=== PATIENT | male | born 1930 | race Caucasian/White ===

== ENCOUNTER 2019-01-11 21:27 | Observation (INO) ==
[2019-01-11] MEDS ORDERED: HYDROmorphone 2 MG/ML VIAL IV PRN (21:44)
[2019-01-11 22:53] LABS: Basophils # (Auto) 0.1 K/mcL (0.0-0.3); Eosinophils # (Auto) 0.1 K/mcL (0.0-0.7); Eosinophils % (Auto) 1.1 % (0.0-7.0); Granulocytes % (Auto) 79.5 % (38.0-78.0); Hemoglobin 13.5 g/dL (13.5-16.5); Lymphocytes # (Auto) 1.1 K/mcL (1.5-4.8); Lymphocytes % (Auto) 11.2 % (15.5-49.0); Mean Cell Volume 94.2 fL (80.0-100.0); Mean Corpuscular HGB Conc 33.7 g/dL (31.0-36.0); Monocytes # (Auto) 0.7 K/mcL (0.1-0.9); Monocytes % (Auto) 7.2 % (1.0-12.0); Platelet Count 139 K/mcL (140-440); RBC 4.25 M/mcL (4.50-5.90); Red Cell Distribution Width 15.1 % (11.5-14.5); WBC 9.7 K/mcL (4.5-11.0)
[2019-01-11 23:05] LABS: INR 1.8 (0.9-1.1); Prothrombin Time 20.7 sec (11.9-14.5)
[2019-01-11 23:14] LABS: ALT/SGPT 16 U/l (0-40); AST/SGOT 18 U/l (0-37); Albumin 3.4 gm/dL (3.2-5.2); Alkaline Phosphatase 66 U/L (39-117); Bilirubin,Total 2.8 mg/dL (0.0-1.0); Blood Urea Nitrogen 24 mg/dl (8-23); Calcium 9.1 mg/dl (8.6-10.4); Carbon Dioxide 24 mmol/L (22-30); Chloride 97 mmol/L (96-108); Globulin 3.4 gm/dL (2.2-3.7); Glomerular Filtration Rate 38; Glucose 136 mg/dL (70-105); Potassium 4.1 mmol/L (3.3-5.1); Sodium 135 mmol/L (133-145)
[2019-01-11] MEDS ORDERED: 0.9 % SODIUM CHLORIDE 1,000 ML IV ONE (23:26)
--- NOTE | 2019-01-12 00:52 | Emergency Department Note ---
Lower Extremity Injury HPI - General Chief Complaint: Extremity Injury, Lower Stated Complaint: right knee swelling Time Seen by Provider: 01/11/19 21:30 Source: patient Mode of arrival: ambulatory Limitations: no limitations - History of Present Illness HPI Narrative: 88-year-old male who fell 3 days ago at [place]. He lives on the assisted side. Apparently he fell onto both knees. 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 He is on Coumadin and his right knee swelled up and turned red. He did started to develop a fever up to 100.6 and so was brought in. He was seen by Dr. Timmons, who put him in a knee immobilizer and arrange for him to go to [facility] as he no longer could get care at [place]. I reviewed that note His daughter is somewhat irate because he got some furosemide there and he should not have. Anyways it arranged for him to have a consult with Dr. Albino Clark at [facility] in 2 days. He is chronically anticoagulated for atrial fibrillation - Related Data Home Medications Medication Instructions Recorded Confirmed cholecalciferol (vitamin D3) 5,000 5,000 unit PO QAMCC tab 01/22/15 01/12/19 unit tablet multivitamin capsule 1 tab-cap PO QDAY cap 01/22/15 01/12/19 omeprazole 20 mg capsule,delayed 20 mg PO QAM 30 Days #30 06/17/17 01/12/19 release ascorbic acid (vitamin C) 500 mg 500 mg PO QDAY 03/01/18 01/12/19 tablet ADA diet 0 dose .ROUTE .MEDSUPPLY 01/12/19 01/12/19 Brimonidine/Dorzolamide/Pf 10 ml OP QHS 01/12/19 01/12/19 [Brimonidine 0.15%-Dorzolam 2%] Compr.stocking,Knee,Long,Small 0 order .MEDSUPPLY 01/12/19 01/12/19 [T.e.d. Anti-Embolism Stocking] Latanoprost/Pf [Latanoprost 0.005% 7.5 ml OP QHS 01/12/19 01/12/19 Eye Drop] Levothyroxine Sodium [Synthroid] 125 mcg PO QDAY 01/12/19 01/12/19 Tamsulosin HCl [Flomax] 0.4 mg PO QAC 01/12/19 01/12/19 Warfarin [Coumadin] 1.25 mg PO .SUN/TUE/THUR/SAT 01/12/19 01/12/19 Warfarin [Coumadin] 2.5 mg PO .MON/THU/Thu01/12/19 01/12/19 Previous Rx's Medication Instructions Recorded simvastatin 20 mg tablet 20 mg PO QPM 90 Days #90 tab 01/18/18 atenolol 25 mg tablet 12.5 mg PO BID #45 tab 05/21/18 digoxin 125 mcg tablet 125 mcg PO QDAY 90 Days #90 tab 07/12/18 lisinopril 5 mg tablet 5 mg PO QDAY #30 tab 07/30/18 Allergies Allergy/AdvReac Type Severity Reaction Status Date / Time sotalol AdvReac Mild Muscle Pain Verified 01/12/19 06:07 Review of Systems All systems ED: reviewed and negative except as stated. Past Medical History - Past Medical History Attestation: Yes: The following information was validated with the patient. 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) Atrial fibrillation (Chronic) Prediabetes (Acute) Elevated liver function tests (Acute) History of sleep apnea (Chronic) Brain mass (Acute) Peripheral vascular disease (Chronic) Syncope (Resolved) Elevated brain natriuretic peptide (BNP) level (Chronic) Edema (Chronic) Insomnia (Chronic) Crystalluria (Chronic) Macular degeneration (Chronic) Essential hypertension (Chronic) Arteritis (Chronic) Hypothyroidism (Chronic) Degenerative arthritis (Chronic) Dyslipidemia (Chronic) Thrombocytopenia (Chronic) Calculus of kidney (Chronic) Duodenitis (Chronic) Basal cell carcinoma of multiple sites (Chronic) Sleep apnea (Chronic) History of bladder cancer (Chronic) Malignant neoplasm of bladder (Resolved 02/24/14) Bladder tumor (Resolved) Gross hematuria (Resolved) Thyroid nodule (Resolved) History of tobacco use (Resolved) Hematuria (Chronic) Diarrhea (Resolved) Postop check (Resolved) Strain of lumbar region (Resolved) Past Surgical History (Last Reviewed 12/15/18 @ 07:57 by Brina Salcedo RN) History of bladder surgery (Resolved) S/P subtotal thyroidectomy (Resolved) Status post surgical removal of malignant neoplasm of skin (Resolved) H/O mastoidectomy (Resolved) S/P arthroscopy of left knee (Resolved) H/O esophagogastroduodenoscopy (Chronic 07/29/17) S/P cystoscopy (Resolved) S/P colonoscopy (Resolved 08/26/17) S/P cholecystectomy (Resolved) S/P biopsy (Resolved) S/P appendectomy (Resolved) Medical history: Reports: atrial fibrillation, CHF, chronic anticoagulation, other (bladder cancer) Surgical history ED: Reports: other (history of bladder cancer, status post treatment.) - Social History smoking status: Former smoker Alcohol use: Reports: Daily Drug use: Reports: none Physical Exam Gross hearing loss is noted. Irregular pulse. Normocephalic atraumatic. Conjunctive are clear sclerae white and icteric. Oropharynx pink and moist. Heart is irregularly irregular rhythm. Lungs are clear to auscultation bilaterally. Exam of the knees shows left knee normal size without significant tenderness. However the right knee diffuse redness especially prepatellar in the superior portions even when lying down. It is tender at posteriorly as well and I cannot detect Pollard's cyst. It is tender with any movement so I am unable to sort out specific ligament issues. Swelling distorts normal anatomy. He is able to move with some. Ankle and foot appear normal Limitations: no limitations Course Vital Signs Temperature 99.2 F H 01/11/19 21:29 Pulse Rate 94 H 01/11/19 21:29 Respiratory Rate 18 01/11/19 21:29 Blood Pressure 141/60 01/11/19 21:29 Pulse Oximetry (%) 95 01/11/19 21:29 Temperature 98.3 F 01/12/19 02:06 Pulse Rate 70 01/12/19 02:06 Respiratory Rate 12 01/12/19 02:06 Blood Pressure 129/68 01/12/19 02:06 Pulse Oximetry (%) 95 01/12/19 02:06 Procedures - Joint Aspiration/Injection Joint Aspiration/Injection 1 Consent Obtained: verbal consent Time Out Performed: No Side of body: right Joint Aspirated: knee Ultrasound Guidance: No Skin Prep: Povidone-Iodine1% Local Anesthetic: lidocaine 1% Amount of anesthesia used (mL): 4 Needle Size Used: Other (25g) Fluid Obtained: bloody Total Fluid Obtained (mls): 2 Complications: none Additional Comments: I used a long spinal needle to try and get into the knee joint space. Because the distortions anatomy it took me 3 attempts. However the third attempt I did get into the joint space but no fluid was aspirated. It was clear then that the fluid is actually in the prepatellar space between the patella and the joint capsule. I then try to superior approach and took out 2 cc of bloody fluid from the prepatellar space-suspect prepatellar hemorrhagic bursitis Extremity Injury, Lower - Lab Data Lab results reviewed: Yes I reviewed the patient's lab results. Result diagrams: 01/12/19 04:21 01/12/19 04:21 Lab Results 01/11/19 01/11/19 01/11/19 Range/Units 22:00 22:00 22:00 WBC 9.7 (4.5-11.0) K/mcL RBC 4.25 L (4.50-5.90) M/mcL Hgb 13.5 (13.5-16.5) g/dL Hct 40.0 L (41.0-55.0) % MCV 94.2 (80.0-100.0) fL MCH 31.7 (26.0-34.0) pg MCHC 33.7 (31.0-36.0) g/dL RDW 15.1 H (11.5-14.5) % Plt Count 139 L (140-440) K/mcL MPV 10.0 (7.4-10.4) fL Gran % 79.5 H (38.0-78.0) % Lymph % (Auto) 11.2 L (15.5-49.0) % Webster % (Auto) 7.2 (1.0-12.0) % Eos % (Auto) 1.1 (0.0-7.0) % Baso % (Auto) 1.0 (0.0-2.0) % Gran # 7.7 (1.8-8.0) K/mcL Lymph # (Auto) 1.1 L (1.5-4.8) K/mcL Webster # (Auto) 0.7 (0.1-0.9) K/mcL Eos # (Auto) 0.1 (0.0-0.7) K/mcL Baso # (Auto) 0.1 (0.0-0.3) K/mcL PT 20.7 H (11.9-14.5) sec INR 1.8 H (0.9-1.1) VBG Lactic Acid (0.5-2.0) mmol/L Sodium 135 (133-145) mmol/L Potassium 4.1 (3.3-5.1) mmol/L Chloride 97 (96-108) mmol/L Carbon Dioxide 24 (22-30) mmol/L Anion Gap 14.0 (8-16) BUN 24 H (8-23) mg/dl Creatinine 1.6 H (0.7-1.2) mg/dl GFR Calculation 38 Glucose 136 H (70-105) mg/dL Uric Acid (2.5-8.0) mg/dL Calcium 9.1 (8.6-10.4) mg/dl Total Bilirubin 2.8 H (0.0-1.0) mg/dL AST 18 (0-37) U/l ALT 16 (0-40) U/l Alkaline Phosphatase 66 (39-117) U/L Total Protein 6.8 (5.9-8.4) gm/dL Albumin 3.4 (3.2-5.2) gm/dL Globulin 3.4 (2.2-3.7) gm/dL Albumin/Globulin Ratio 1.0 (1.0-2.3) 01/11/19 01/11/19 Range/Units 22:00 22:00 WBC (4.5-11.0) K/mcL RBC (4.50-5.90) M/mcL Hgb (13.5-16.5) g/dL Hct (41.0-55.0) % MCV (80.0-100.0) fL MCH (26.0-34.0) pg MCHC (31.0-36.0) g/dL RDW (11.5-14.5) % Plt Count (140-440) K/mcL MPV (7.4-10.4) fL Gran % (38.0-78.0) % Lymph % (Auto) (15.5-49.0) % Webster % (Auto) (1.0-12.0) % Eos % (Auto) (0.0-7.0) % Baso % (Auto) (0.0-2.0) % Gran # (1.8-8.0) K/mcL Lymph # (Auto) (1.5-4.8) K/mcL Webster # (Auto) (0.1-0.9) K/mcL Eos # (Auto) (0.0-0.7) K/mcL Baso # (Auto) (0.0-0.3) K/mcL PT (11.9-14.5) sec INR (0.9-1.1) VBG Lactic Acid 0.9 (0.5-2.0) mmol/L Sodium (133-145) mmol/L Potassium (3.3-5.1) mmol/L Chloride (96-108) mmol/L Carbon Dioxide (22-30) mmol/L Anion Gap (8-16) BUN (8-23) mg/dl Creatinine (0.7-1.2) mg/dl GFR Calculation Glucose (70-105) mg/dL Uric Acid 6.9 (2.5-8.0) mg/dL Calcium (8.6-10.4) mg/dl Total Bilirubin (0.0-1.0) mg/dL AST (0-37) U/l ALT (0-40) U/l Alkaline Phosphatase (39-117) U/L Total Protein (5.9-8.4) gm/dL Albumin (3.2-5.2) gm/dL Globulin (2.2-3.7) gm/dL Albumin/Globulin Ratio (1.0-2.3) - Radiology Data Radiology results reviewed: Yes I reviewed the patient's radiology results. CT scan of the right knee on [employer] read shows consistent with prepatellar bursitis and possible ruptured popliteal cyst. Multiple Compartment degenerative changes. Dr. Savage over read questions possible ligament tear Disposition Pt seen by [facility] [employer] [facility]/PA only: No Clinical Impression: manager terminal current use of anticoagulant therapy, Acute kidney injury Hemorrhagic prepatellar bursitis Qualifiers: Laterality: right Qualified Code(s): M70.41 - Prepatellar bursitis, right knee Fever Qualifiers: Fever type: unspecified Qualified Code(s): R50.9 - Fever, unspecified Summary: Initially treated his pain and ordered work-up. In summary patient is a 88-year-old with a red hot swollen right knee status post fall 2 days ago. Now with fever After aspiration of the knee this was sent for wound culture and Gram stain. Laboratory shows acute kidney injury with a creatinine bump to 1.6 but he did have furosemide today and is not taking much fluid. Started IV fluid. Discussed the case with Dr. Nico Washington, orthopedist certified pediatric nurse practitioner. He advised me to start Ancef. I then discussed the case with Dr. New, our hospitalist, who agreed to accept the patient for further care and evaluation in the hospital Disposition: Xfer As Inpt ([facility]) Condition: Fair
[2019-01-12] MEDS ORDERED: ceFAZolin 1 GM VIAL IM ONE (01:06)
[2019-01-12] MEDS ORDERED: HYDROmorphone 2 MG/ML VIAL IV PRN (01:57)
[2019-01-12] MEDS ORDERED: ACETAMINOPHEN 325 MG TABLET PO PRN (01:57)
[2019-01-12] MEDS ORDERED: VANCOMYCIN 1,500 MG in 0.9 % SODIUM CHLORIDE 500 ML IV ONE (01:57)
[2019-01-12] MEDS ORDERED: NALOXONE HCL 0.4 MG/ML VIAL IV PRN (01:57)
[2019-01-12] MEDS ORDERED: ALBUTEROL SULFATE 2.5 MG/3 ML NEBULIZER NEB PRN (01:57)
[2019-01-12] MEDS ORDERED: oxyCODONE HCL 5 MG TABLET PO PRN (01:57)
[2019-01-12] MEDS ORDERED: LACTATED RINGERS 1,000 ML IV SCH (01:57)
[2019-01-12] MEDS ORDERED: CEFEPIME 1 GM VIAL IV SCH (01:57)
[2019-01-12] MEDS ORDERED: VANCOMYCIN PER PHARMACY IV SCH (01:57)
[2019-01-12] MEDS ORDERED: ONDANSETRON 4 MG/2 ML VIAL IV PRN (01:57)
[2019-01-12] MEDS ORDERED: PHYTONADIONE 10 MG/ML AMPUL ONE (02:12)
[2019-01-12] MEDS: PHYTONADIONE 1 MG in 0.9 % SODIUM CHLORIDE 50 ML PO ONE ×2 (03:45→03:49)
[2019-01-12 05:45] LABS: Basophils # (Auto) 0 K/mcL (0.0-0.3); Basophils % (Auto) 0.2 % (0.0-2.0); Eosinophils # (Auto) 0.1 K/mcL (0.0-0.7); Eosinophils % (Auto) 1.1 % (0.0-7.0); Granulocytes % (Auto) 80.5 % (38.0-78.0); Hematocrit 40.7 % (41.0-55.0); Hemoglobin 13.6 g/dL (13.5-16.5); Lymphocytes # (Auto) 1.1 K/mcL (1.5-4.8); Lymphocytes % (Auto) 12.3 % (15.5-49.0); Mean Cell Volume 97.7 fL (80.0-100.0); Mean Corpuscular HGB Conc 33.5 g/dL (31.0-36.0); Mean Platelet Volume 10.3 fL (7.4-10.4); Monocytes # (Auto) 0.5 K/mcL (0.1-0.9); Monocytes % (Auto) 5.9 % (1.0-12.0); Platelet Count 141 K/mcL (140-440); RBC 4.17 M/mcL (4.50-5.90); Red Cell Distribution Width 16.5 % (11.5-14.5); WBC 8.9 K/mcL (4.5-11.0)
--- NOTE | 2019-01-12 05:50 | Cat Scan Report ---
CLINICAL INFORMATION: Trauma with pain and swelling. Negative x-rays COMPARISON: 01/10/2019 plain film TECHNIQUE: 0.625 mm helical slices were obtained from the mid femur to the mid tibia fibula. Following reconstruction, 2.5 mm axial, sagittal and coronal reformatted images were processed and reviewed at bone and soft tissue windows FINDINGS: No fracture identified. There is a 17 mm exostosis projecting from the posterior medial metaphysis of the distal femur. The femur is subluxed approximately 8 mm with respect to the tibia suggesting instability due to ACL/PCL tear. Moderate degenerative change in both the tibiofemoral and patellofemoral joints featuring moderate joint space narrowing and periarticular osteophyte formation. There is mild chondrocalcinosis in medial and lateral menisci. A moderate-sized simple effusion is noted in the suprapatellar bursa related to trauma. Mild generalized atrophy of all visualized periarticular musculature. IMPRESSION: 1. No fracture identified. Moderate simple posttraumatic effusion in the suprapatellar bursa 2. Mild subluxation of the tibiofemoral joint suggesting ligament tear. CT does not provide sufficient soft tissue contrast resolution to exclude ACL/PCL tears. Please correlate with instability on physical exam. If this requires a definitive diagnosis, MRI or arthroscopy are suggested. 3. 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 17 mm exostosis - posterior medial metaphysis the distal femur Interpreted and Authenticated by: Wilmer Savage 01/12/19
[2019-01-12 05:54] LABS: INR 1.7 (0.9-1.1); Prothrombin Time 19.8 sec (11.9-14.5)
[2019-01-12] MEDS ORDERED: 0.9 % SODIUM CHLORIDE 10 ML SYRINGE IV SCH (06:00)
[2019-01-12 06:05] LABS: ALT/SGPT 19 U/l (0-40); AST/SGOT 18 U/l (0-37); Albumin 3.5 gm/dL (3.2-5.2); Alkaline Phosphatase 66 U/L (39-117); Bilirubin,Direct 0.5 mg/dL (0.0-0.3); Bilirubin,Total 2.5 mg/dL (0.0-1.0); Blood Urea Nitrogen 23 mg/dl (8-23); Calcium 8.8 mg/dl (8.6-10.4); Carbon Dioxide 24 mmol/L (22-30); Chloride 99 mmol/L (96-108); Gamma Glutamyl Transpeptidase 55 U/L (8-61); Globulin 3.5 gm/dL (2.2-3.7); Glomerular Filtration Rate 38; Glucose 124 mg/dL (70-105); Lactate Dehydrogenase 183 U/L (94-250); Potassium 4.1 mmol/L (3.3-5.1); Sodium 137 mmol/L (133-145); Triglycerides 94 mg/dl (<150); Uric Acid 6.6 mg/dL (2.5-8.0)
--- NOTE | 2019-01-12 07:28 | Orthopedic Consult Note ---
History of Present Illness - HPI Patient information: Note initiated : 01/12/19 at 7:25 am Service Date, if different from initiated Date: [] Patient: Raymond Dickerson 88 y/o M admitted on 01/12/19 for right knee swelling. Chief Complaint: [Right knee pain and swelling] Consult date: 01/12/19 Consult reason: joint pain History of present illness: Patient is an 88 year old male who states he fell a few days ago onto both knees at a baseball game. He scraped his left knee but started having pain in the right knee shortly there after. He normally resides at [place] and was taken to the ED where he was given a knee brace and sent to [facility] for more hands on care. He's been having trouble weight bearing for several days and noticed more swelling in the right knee. Last night he was brought to the ER where the prepatellar bursa was drained and sent to pathology. Today his pain is throughout the whole right knee. He has had trouble with this knee for sometime but more acutely since this fall. His left knee was replaced by Dr. Mendosa several years ago. He denies numbness, tingling, calf pain. Medications and Allergies Home Medications Medication Instructions Recorded Confirmed Type cholecalciferol (vitamin D3) 5,000 5,000 unit PO QAMCC tab 01/22/15 01/12/19 History unit tablet multivitamin capsule 1 tab-cap PO QDAY cap 01/22/15 01/12/19 History omeprazole 20 mg capsule,delayed 20 mg PO QAM 30 Days #30 06/17/17 01/12/19 History release simvastatin 20 mg tablet 20 mg PO QPM 90 Days #90 tab 01/18/18 01/12/19 Rx ascorbic acid (vitamin C) 500 mg 500 mg PO QDAY 03/01/18 01/12/19 History tablet atenolol 25 mg tablet 12.5 mg PO BID #45 tab 05/21/18 01/12/19 Rx digoxin 125 mcg tablet 125 mcg PO QDAY 90 Days #90 tab 07/12/18 01/12/19 Rx lisinopril 5 mg tablet 5 mg PO QDAY #30 tab 07/30/18 01/12/19 Rx ADA diet 0 dose .ROUTE .MEDSUPPLY 01/12/19 01/12/19 History Brimonidine/Dorzolamide/Pf 10 ml OP QHS 01/12/19 01/12/19 History [Brimonidine 0.15%-Dorzolam 2%] Compr.stocking,Knee,Long,Small 0 order .MEDSUPPLY 01/12/19 01/12/19 History [T.e.d. Anti-Embolism Stocking] Latanoprost/Pf [Latanoprost 0.005% 7.5 ml OP QHS 01/12/19 01/12/19 History Eye Drop] Levothyroxine Sodium [Synthroid] 125 mcg PO QDAY 01/12/19 01/12/19 History Tamsulosin HCl [Flomax] 0.4 mg PO QAMCC 01/12/19 01/12/19 History Warfarin [Coumadin] 1.25 mg PO .SUN/TUE/THUR/SAT 01/12/19 01/12/19 History Warfarin [Coumadin] 2.5 mg PO .MON/THU/Thu01/12/19 01/12/19 History Allergies Allergy/AdvReac Type Severity Reaction Status Date / Time sotalol AdvReac Mild Muscle Pain Verified 01/12/19 06:07 Physical Examination - Knee bilateral Appearance: effusion, other (right knee moderate effusion) Effusion grade: grade 2 Tenderness with palpation: anterior, posterior, medial, lateral, peripatellar, quad tendon, patella tendon, pes anserinus, ITB, MCL (origin), MCL (middle/3), MCL (insertion), LCL (origin), LCL (middle/3), LCL (insertion), other Pain: with flexion, with extension, throughout ROM, at limits of motion, other Gait: other (cannot weight bear) Strength: extension: 4/5 Strength: flexion: 4/5 ACL tests: anterior drawer: grade 1 Assessment and Plan (1) Hemorrhagic prepatellar bursitis Right knee pain: -given the intra-articular effusion without evidence of fracture, patient likely contused patella during fall. Has fair amount of arthritis in the knee as well. Prepatellar bursa was drained already and path labs negative thus far. Do not suspect joint or bursal infection. Recommend patient WBAT, encourage range of motion as tolerated, ice and compression. Patient has new eval with Dr. Clark tomorrow. Recommended to daughter that they keep that appointment for further orthopaedic planning. D/c per hospitalist Status: Acute Qualifiers: Laterality: right Qualified Code(s): M70.41 - Prepatellar bursitis, right knee
[2019-01-12] MEDS ORDERED: OMEPRAZOLE 20 MG CAPSULE PO SCH (07:30)
[2019-01-12] MEDS ORDERED: LEVOTHYROXINE 125 MCG TABLET PO SCH (07:30)
[2019-01-12 07:39] LABS: Appearance,Urine CLEAR; Bacteria,Urine 0 /hpf (0); Bilirubin,Urine NEG (NEG); Color,Urine YELLOW; Culture Indicated,Urine NO; Glucose,Urine (UA) NEGATIVE (NEG); Ketones,Urine NEG (NEG); Leukocyte Esterase,Urine NEG /uL (NEG); Mucus,Urine FEW /hpf (0); Nitrate,Urine NEG (NEG); Protein,Urine 30 mg/dL (NEG); Specific Gravity,Urine 1.015 (1.000-1.035); Urine Blood NEG mg/dL (<0.03); Urine RBC 7 /hpf (0-1); Urine Squamous Epithelial Cell 1 /hpf (0-4); Urine WBC 1 /hpf (0-4); Urobilinogen,Urine NEG (NEG)
[2019-01-12] MEDS ORDERED: TAMSULOSIN 0.4 MG CAPSULE PO SCH (08:00)
--- NOTE | 2019-01-12 08:43 | XRay Report ---
CLINICAL INFORMATION: falls, fever COMPARISON: 10/30/2018 FINDINGS: Mild cardiomegaly is unchanged. Mediastinum and pulmonary vessels are normal. Mild bibasilar airspace disease has developed - more likely atelectasis than infiltrate. No effusion. IMPRESSION: New mild bibasilar airspace disease - more likely atelectasis than developing infiltrate Mild, stable cardiomegaly. Interpreted and Authenticated by: Wilmer Savage 01/12/19
[2019-01-12] MEDS ORDERED: ATENOLOL 50 MG TABLET PO SCH (09:00)
--- NOTE | 2019-01-12 09:39 | Discharge Summary ---
Medical - DS: Prov Patient information: Note initiated : 01/12/19 at 9:37 am Service Date, if different from initiated Date: [] Patient: Raymond Dickerson 88 y/o M admitted on 01/12/19 for right knee swelling. Chief Complaint: [] Date of admission: 01/12/19 01:55 Discharge date: 01/12/19 Primary care physician: Aliza Elias Consults: 01/12/19 Consult to Physician [CONS] Stat Comment: Consulting Provider: Wilmer Washington Reason For Exam: Physician to Consult Consult to Physician [CONS] Stat Comment: Consulting Provider: Colette New Reason For Exam: Physician to Consult Discharging clinician: Colette New Medical - DS: Meds - Discharge Medications Prescriptions: oxyCODONE HCL [Roxicodone] 5 mg PO Q4HP PRN #30 tab PRN Reason: pain not controlled by apap Active and Home Medications: Home Medications cholecalciferol (vitamin D3) 5,000 unit tablet 5,000 unit PO QAC tab 01/22/15 [History Confirmed 01/12/19 Last Taken Unknown] multivitamin capsule 1 tab-cap PO QDAY cap 01/22/15 [History Confirmed 01/12/19 Last Taken Unknown] omeprazole 20 mg capsule,delayed release 20 mg PO QAM 30 Days #30 06/17/17 [History Confirmed 01/12/19 Last Taken Unknown] simvastatin 20 mg tablet 20 mg PO QPM 90 Days #90 tab 01/18/18 [Rx Confirmed 01/12/19 Last Taken Unknown] ascorbic acid (vitamin C) 500 mg tablet 500 mg PO QDAY 03/01/18 [History Confirmed 01/12/19 Last Taken Unknown] atenolol 25 mg tablet 12.5 mg PO BID #45 tab 05/21/18 [Rx Confirmed 01/12/19 Last Taken Unknown] digoxin 125 mcg tablet 125 mcg PO QDAY 90 Days #90 tab 07/12/18 [Rx Confirmed 01/12/19 Last Taken Unknown] lisinopril 5 mg tablet 5 mg PO QDAY #30 tab 07/30/18 [Rx Confirmed 01/12/19 Last Taken Unknown] ADA diet 0 dose .ROUTE .MEDSUPPLY 01/12/19 [History Confirmed 01/12/19 Last Taken Unknown] Brimonidine/Dorzolamide/Pf [Brimonidine 0.15%-Dorzolam 2%] 10 ml OP QHS 01/12/19 [History Confirmed 01/12/19 Last Taken Unknown] Compr.stocking,Knee,Long,Small [T.e.d. Anti-Embolism Stocking] 0 order .MEDSUPPLY 01/12/19 [History Confirmed 01/12/19 Last Taken Unknown] Latanoprost/Pf [Latanoprost 0.005% Eye Drop] 7.5 ml OP QHS 01/12/19 [History Confirmed 01/12/19 Last Taken Unknown] Levothyroxine Sodium [Synthroid] 125 mcg PO QDAY 01/12/19 [History Confirmed 01/12/19 Last Taken Unknown] Tamsulosin HCl [Flomax] 0.4 mg PO QAMCC 01/12/19 [History Confirmed 01/12/19 Last Taken Unknown] Warfarin [Coumadin] 1.25 mg PO .SUN/TUE/THUR/SAT 01/12/19 [History Confirmed 01/12/19 Last Taken Unknown] Warfarin [Coumadin] 2.5 mg PO .MON/WED/FRI 01/12/19 [History Confirmed 01/12/19 Last Taken Unknown] Medical - DS: Hosp Hospital course: SAME DAY OBSERVATION DISCHARGE Mr. Dickerson is a 88 year old M with h/o Atrial fibrillation on chr anticoagulation, presented to the ER with a mechanical fall, and knee pain. He was seen by the ER provider and there was a concern for acute infection of the bursa as well as possible bleeding in the joint. CT done of the knee did show effusion. Aspiration was done which was negative on gram stain, pt did have a low grade fever, as well as pain which was causing difficulty in ambulation hence was observed and ortho consult was obtained. Ortho evaluated the patient, they did not see any concern for a infection, patient advised weight bearing as tolerated and outpatient ortho follow up Patient had slight bump in creatinine at 1.6, which is slight worsening from baseline, but pt is clinically stable, bp is stable, his renal function has remanied stable since yesterday Chest x ray shows bibasilar atelectasis which would likely explain the low grade temp. Patient is stable for discharge to SNF for his PT program. He will continue his anticoagulation as well as his usual home medication as previously prescribed by his PCP. He has outpatient follow up with Dr Clark tomorrow which he is advised to keep. Discharge diagnosis: patellar contusion - Time Spent with Patient Total time spent providing and/or coordinating discharge services: Greater than 30 minutes Medical - DS: Exam - Constitutional Vitals: Vital Signs Temp Pulse Pulse Resp BP BP Pulse Ox 01/12/19 08:00 97.8 F 81 18 144/82 96 01/12/19 02:06 98.3 F 70 12 129/68 95 01/11/19 21:29 99.2 F H 94 H 18 141/60 95 Intake and Output 01/11/19 01/12/19 01/12/19 21:59 05:59 13:59 Intake Total 1000 300.1 Output Total 300 75 Balance 700 225.1 Intake: IV 1000 50.1 Sodium Chloride 0.9% 1,000 ml @ 1000 Wide Open IV BOLUS ONE Rx#: [id number] Aquamephyton 1 mg In Sodium 50.1 Chloride 0.9% 50 ml @ 50 mls/hr PO ONCE ONE Rx#:[id number] Oral 250 Output: Void Amount 300 75 Other: Meal Breakfast Percent of Meal Consumed 75% Feeding Ability Assist with Tray Set Up Urine Appearance Clear Clear Urine Color Dark Xochilt Dark Yellow Urine Odor Normal Weight 210 lb 224 lb Additional comments: Constitutional; Afebrile, cooperative, alert, not in distress. Respiratory system: Air Entry equal on both sides, No crackles or wheezing, no rhonchi. CVS- Rate rhythm regular, S1,S2 heard, no gallop, no rub. Abdomen- Soft nontender abdomen, no organomegaly, no tenderness, no guarding or rigidity, SPINNING MACHINE OPERATOR- AOOx3, moving all extremities, no gross focal deficit noted. RIght knee has edema, and mild erythema, tender to touch Medical - DS: Data Labs on day of discharge: Labs from last 24 hours 01/12/19 01/12/19 01/12/19 07:13 04:21 04:21 WBC RBC Hgb Hct MCV MCH MCHC RDW Plt Count MPV Gran % Lymph % (Auto) [place] % (Auto) Eos % (Auto) Baso % (Auto) Gran # Lymph # (Auto) [place] # (Auto) Eos # (Auto) Baso # (Auto) PT 19.8 H INR 1.7 H VBG Lactic Acid Sodium 137 Potassium 4.1 Chloride 99 Carbon Dioxide 24 Anion Gap 14.0 BUN 23 Creatinine 1.6 H GFR Calculation 38 Glucose 124 H Uric Acid 6.6 Calcium 8.8 Phosphorus 3.0 Magnesium 2.0 Total Bilirubin 2.5 H Direct Bilirubin 0.5 H GGT 55 AST 18 ALT 19 Alkaline Phosphatase 66 Lactate Dehydrogenase 183 Total Protein 7.0 Albumin 3.5 Globulin 3.5 Albumin/Globulin Ratio 1.0 Triglycerides 94 Procalcitonin Urine Color Yellow Urine Appearance Clear Urine pH 6.0 Ur Specific [place] 1.015 Urine Protein 30 A Urine Glucose (UA) Negative Urine Ketones Neg Urine Occult Blood Neg Urine Nitrate Neg Urine Bilirubin Neg Urine Urobilinogen Neg Ur Leukocyte Esterase Neg Urine RBC 7 H Urine WBC 1 Ur Squamous Epith Cells 1 Urine Bacteria 0 Urine Mucus Few Ur Culture Indicated? No 01/12/19 01/12/19 01/11/19 04:21 04:21 22:00 WBC 8.9 RBC 4.17 L Hgb 13.6 Hct 40.7 L MCV 97.7 MCH 32.7 MCHC 33.5 RDW 16.5 H Plt Count 141 MPV 10.3 Gran % 80.5 H Lymph % (Auto) 12.3 L [place] % (Auto) 5.9 Eos % (Auto) 1.1 Baso % (Auto) 0.2 Gran # 7.2 Lymph # (Auto) 1.1 L [place] # (Auto) 0.5 Eos # (Auto) 0.1 Baso # (Auto) 0 PT INR VBG Lactic Acid Sodium Potassium Chloride Carbon Dioxide Anion Gap BUN Creatinine GFR Calculation Glucose Uric Acid 6.9 Calcium Phosphorus Magnesium Total Bilirubin Direct Bilirubin GGT AST ALT Alkaline Phosphatase Lactate Dehydrogenase Total Protein Albumin Globulin Albumin/Globulin Ratio Triglycerides Procalcitonin 0.50 Urine Color Urine Appearance Urine pH Ur Specific [place] Urine Protein Urine Glucose (UA) Urine Ketones Urine Occult Blood Urine Nitrate Urine Bilirubin Urine Urobilinogen Ur Leukocyte Esterase Urine RBC Urine WBC Ur Squamous Epith Cells Urine Bacteria Urine Mucus Ur Culture Indicated? 01/11/19 01/11/19 01/11/19 22:00 22:00 22:00 WBC RBC Hgb Hct MCV MCH MCHC RDW Plt Count MPV Gran % Lymph % (Auto) [place] % (Auto) Eos % (Auto) Baso % (Auto) Gran # Lymph # (Auto) [place] # (Auto) Eos # (Auto) Baso # (Auto) PT 20.7 H INR 1.8 H VBG Lactic Acid 0.9 Sodium 135 Potassium 4.1 Chloride 97 Carbon Dioxide 24 Anion Gap 14.0 BUN 24 H Creatinine 1.6 H GFR Calculation 38 Glucose 136 H Uric Acid Calcium 9.1 Phosphorus Magnesium Total Bilirubin 2.8 H Direct Bilirubin GGT AST 18 ALT 16 Alkaline Phosphatase 66 Lactate Dehydrogenase Total Protein 6.8 Albumin 3.4 Globulin 3.4 Albumin/Globulin Ratio 1.0 Triglycerides Procalcitonin Urine Color Urine Appearance Urine pH Ur Specific [place] Urine Protein Urine Glucose (UA) Urine Ketones Urine Occult Blood Urine Nitrate Urine Bilirubin Urine Urobilinogen Ur Leukocyte Esterase Urine RBC Urine WBC Ur Squamous Epith Cells Urine Bacteria Urine Mucus Ur Culture Indicated? 01/11/19 22:00 WBC 9.7 RBC 4.25 L Hgb 13.5 Hct 40.0 L MCV 94.2 MCH 31.7 MCHC 33.7 RDW 15.1 H Plt Count 139 L MPV 10.0 Gran % 79.5 H Lymph % (Auto) 11.2 L [place] % (Auto) 7.2 Eos % (Auto) 1.1 Baso % (Auto) 1.0 Gran # 7.7 Lymph # (Auto) 1.1 L [place] # (Auto) 0.7 Eos # (Auto) 0.1 Baso # (Auto) 0.1 PT INR VBG Lactic Acid Sodium Potassium Chloride Carbon Dioxide Anion Gap BUN Creatinine GFR Calculation Glucose Uric Acid Calcium Phosphorus Magnesium Total Bilirubin Direct Bilirubin GGT AST ALT Alkaline Phosphatase Lactate Dehydrogenase Total Protein Albumin Globulin Albumin/Globulin Ratio Triglycerides Procalcitonin Urine Color Urine Appearance Urine pH Ur Specific [place] Urine Protein Urine Glucose (UA) Urine Ketones Urine Occult Blood Urine Nitrate Urine Bilirubin Urine Urobilinogen Ur Leukocyte Esterase Urine RBC Urine WBC Ur Squamous Epith Cells Urine Bacteria Urine Mucus Ur Culture Indicated? - Additional Comments CT knee IMPRESSION: 1. No fracture identified. Moderate simple posttraumatic effusion in the suprapatellar bursa 2. Mild subluxation of the tibiofemoral joint suggesting ligament tear. CT does not provide sufficient soft tissue contrast resolution to exclude ACL/PCL tears. Please correlate with instability on physical exam. If this requires a definitive diagnosis, MRI or arthroscopy are suggested. 3. 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 17 mm exostosis - posterior medial metaphysis the distal femur Medical - DS: A/P - Patient/Caregiver Discharge Instructions Activity: increase activity as tolerated Diet: Cardiac Additional Instructions: Follow up with PCP in 1 week, make sure PCP checks kidney function at the next office visit. Continue coumadin, check INR in 3 days, adjust coumadin dose per PCP Follow up with Dr Clark in 1 day, Go to the ER if worsening symptoms, fever, chest pain, shortness of breath or any other acute concern. Prescriptions: oxyCODONE HCL [Roxicodone] 5 mg PO Q4HP PRN #30 tab PRN Reason: pain not controlled by apap Other Amb Orders: Physical Therapy at Discharge - General Location: None Selected - Follow up Plan Follow up with: Aliza Elias, JOSE MANUEL, [employer]ER [Primary Care Provider] - Manjeet Clark MD [Physician] - Disposition: Xfer SNF Prognosis: Fair Rehab Potential: Fair I certify that the patient requires SNF services: Yes Overall status at discharge: patient is progressing back to baseline Medical - DS: Qual - VTE Deep Vein Thrombosis/Pulmonary Embolism Present on Admission: No
[2019-01-12] MEDS ORDERED: VANCOMYCIN 500 MG in 0.9 % SODIUM CHLORIDE 100 ML IV ONE (10:00)
[2019-01-12] MEDS ORDERED: traMADol 50 MG TABLET PO PRN (10:24)
[2019-01-12] MEDS ORDERED: DIGOXIN 125 MCG TABLET PO SCH (12:00)
[2019-01-12] MEDS ORDERED: SIMVASTATIN 20 MG TABLET PO SCH (21:00)
[2019-01-13] MEDS ORDERED: VANCOMYCIN 1,500 MG in 0.9 % SODIUM CHLORIDE 500 ML IV SCH (09:00)
--- NOTE | 2019-01-15 01:43 | Internal Med History&Physical ---
Medical - H&P: HPI Patient information: Note initiated : 01/15/19 at 1:42 am Service Date, if different from initiated Date: [] Patient: Raymond Dickerson 88 y/o M admitted on 01/12/19 for right knee swelling. Chief Complaint: [] History of present illness: see discharge summary Medical - H&P: Meds Home Medications Medication Instructions Recorded Confirmed Type cholecalciferol (vitamin D3) 5,000 5,000 unit PO QAMCC tab 01/22/15 01/12/19 History unit tablet multivitamin capsule 1 tab-cap PO QDAY cap 01/22/15 01/12/19 History omeprazole 20 mg capsule,delayed 20 mg PO QAM 30 Days #30 06/17/17 01/12/19 History release simvastatin 20 mg tablet 20 mg PO QPM 90 Days #90 tab 01/18/18 01/12/19 Rx ascorbic acid (vitamin C) 500 mg 500 mg PO QDAY 03/01/18 01/12/19 History tablet atenolol 25 mg tablet 12.5 mg PO BID #45 tab 05/21/18 01/12/19 Rx digoxin 125 mcg tablet 125 mcg PO QDAY 90 Days #90 tab 07/12/18 01/12/19 Rx lisinopril 5 mg tablet 5 mg PO QDAY #30 tab 07/30/18 01/12/19 Rx ADA diet 0 dose .ROUTE .MEDSUPPLY 01/12/19 01/12/19 History Brimonidine/Dorzolamide/Pf 10 ml OP QHS 01/12/19 01/12/19 History [Brimonidine 0.15%-Dorzolam 2%] Compr.stocking,Knee,Long,Small 0 order .MEDSUPPLY 01/12/19 01/12/19 History [T.e.d. Anti-Embolism Stocking] Latanoprost/Pf [Latanoprost 0.005% 7.5 ml OP QHS 01/12/19 01/12/19 History Eye Drop] Levothyroxine Sodium [Synthroid] 125 mcg PO QDAY 01/12/19 01/12/19 History Tamsulosin HCl [Flomax] 0.4 mg PO QAMCC 01/12/19 01/12/19 History Warfarin [Coumadin] 1.25 mg PO .SUN/TUE/THUR/SAT 01/12/19 01/12/19 History Warfarin [Coumadin] 2.5 mg PO .THU/THU/Thu01/12/19 01/12/19 History oxyCODONE HCL [Roxicodone] 5 mg PO Q4HP PRN #30 tab 01/12/19 Rx traMADol [Ultram] 50 mg PO DAILYP PRN #50 tab 01/12/19 Rx Allergies Allergy/AdvReac Type Severity Reaction Status Date / Time sotalol AdvReac Mild Muscle Pain Verified 01/12/19 06:07 Medical - H&P: Exam - Constitutional Vitals: Temp Pulse Resp BP Pulse Ox 98.4 F 70 12 132/80 95 01/12/19 11:40 01/12/19 11:40 01/12/19 11:40 01/12/19 11:40 01/12/19 11:40 Medical - H&P: Reslt - Labs CBC & Chem 7: 01/12/19 04:21 01/12/19 04:21 Medical - H&P: Qual - VTE Deep Vein Thrombosis/Pulmonary Embolism Present on Admission: No
== END 2019-01-12 11:40 ==
LOC: ED 21:27 → MEDSUR 21:27
PROVIDERS: ADMIT Internal Medicine; ATTEND Internal Medicine